=== PATIENT | female | born 1960 | race African-American/Black ===

== ENCOUNTER 2016-10-08 09:44 | Emergency (ER) | payer BC ==
[~2016-10-08] VITALS: Ht 182.9 cm; Wt 54.4 kg
[2016-10-08 09:50] VITALS: BP 123/80
[2016-10-08] MEDS ORDERED: HYDROcodone/APAP 5/325MG 1 TAB TABLET PO ONE (10:30)
[2016-10-08] MEDS ORDERED: CYCLOBENZAPRINE 10 MG TABLET. PO ONE (10:30)
--- NOTE | 2016-10-08 11:50 | RAD ---
Right rib series to include a PA chest radiograph 10/08/2016 Clinical history: Right rib pain post fall. A PA digital radiograph of the chest was obtained. AP and oblique digital radiographs of the right ribs were obtained. The cardiac silhouette is normal in size. The thoracic aorta is minimally tortuous. Atherosclerotic calcification of the thoracic aorta is seen. No acute pulmonary infiltrate is noted. No pneumothorax or pleural effusion is seen. The osseous structures are grossly intact. Specifically no right-sided rib fracture is seen. Impression: No right rib fracture is seen.
[2016-10-08] MEDS ORDERED: CYCL10TA2 PO (12:07)
[2016-10-08] MEDS ORDERED: HYDR-971 PO (12:07)
[2016-10-08] MEDS ORDERED: DICL50TA4 PO (12:07)
--- NOTE | 2016-10-08 12:07 | PHYS DOC ---
Past Medical History Past Medical History: Hypertension Past Surgical History: Other Additional Past Surgical Histo: partial hysterectomy in 1990 Alcohol Use: Occasionally Drug Use: None Adult General Chief Complaint Chief Complaint: MECHANICAL FALL HPI HPI Patient is a 56 year old female with history of hypertension who presents with a right rib contusion after slipping in the bathtub last night and falling. Patient denies any loss of consciousness, denies hitting her head on the ground. Review of Systems Review of Systems Constitutional: Denies fever or chills [] Eyes: Denies change in visual acuity, redness, or eye pain [] HENT: Denies nasal congestion or sore throat [] Respiratory: Right rib pain Cardiovascular: No additional information not addressed in HPI [] GI: Denies abdominal pain, nausea, vomiting, bloody stools or diarrhea [] : Denies dysuria or hematuria [] Musculoskeletal: Denies back pain or joint pain [] Integument: Denies rash or skin lesions [] Neurologic: Denies headache, focal weakness or sensory changes [] Endocrine: Denies polyuria or polydipsia [] Current Medications Current Medications Current Medications Medications (Trade) Dose Ordered Sig/Fabiola Start Time Stop Time Status Last Admin Dose Admin Acetaminophen/ Hydrocodone Bitart (Lortab 5/325) 1 tab 1X ONCE 10/08/16 10:30 10/08/16 10:31 DC 10/08/16 10:31 1 TAB Cyclobenzaprine HCl (Flexeril) 10 mg 1X ONCE 10/08/16 10:30 10/08/16 10:31 DC 10/08/16 10:31 10 MG Allergies Allergies Allergies Coded Allergies Type Severity Reaction Last Updated Verified ciprofloxacin Allergy Intermediate 10/08/16 Yes Physical Exam Physical Exam Constitutional: Well developed, well nourished, no acute distress, non-toxic appearance. [] HENT: Normocephalic, atraumatic, bilateral external ears normal, oropharynx moist, no oral exudates, nose normal. [] Eyes: PERRLA, EOMI, conjunctiva normal, no discharge. [] Neck: Normal range of motion, no tenderness, supple, no stridor. [] Cardiovascular:Heart rate regular rhythm, no murmur [] Lungs & Thorax: Bruising noted on the right posterior ribs approximately ribs 9 and 10. Tenderness on palpation to ribs 9 and 10 posteriorly. Bilateral breath sounds clear to auscultation [] Abdomen: Bowel sounds normal, soft, no tenderness, no masses, no pulsatile masses. [] Skin: Warm, dry, no erythema, no rash. [] Back: No tenderness, no CVA tenderness. [] Extremities: No tenderness, no cyanosis, no clubbing, ROM intact, no edema. [] Neurologic: Alert and oriented X 3, normal motor function, normal sensory function, no focal deficits noted. [] Psychologic: Affect normal, judgement normal, mood normal. [] Current Patient Data Vital Signs Vital Signs Date Time Temp Pulse Resp B/P (MAP) Pulse Ox O2 Delivery O2 Flow Rate FiO2 10/08/16 10:31 22 95 Room Air 10/08/16 09:50 98.7 87 98.7 EKG EKG [] Radiology/Procedures Radiology/Procedures [] Course & Med Decision Making Course & Med Decision Making Pertinent Labs and Imaging studies reviewed. (See chart for details) Patient is in the ED with right posterior rib pain after falling yesterday. Right rib x-rays with PA chest interpreted by radiologist were negative for any acute findings. Patient has right rib contusions. discharged with cyclobenzaprine, diclofenac, and [place]. Follow-up with PCP in 1-2 weeks. Ice recommended to the area. Dragon Disclaimer Dragon Disclaimer This electronic medical record was generated, in whole or in part, using a voice recognition dictation system. Departure Departure Impression: Primary Impression: Fall from standing Additional Impression: Contusion of rib on right side Disposition: 01 HOME, SELF-CARE Condition: STABLE Referrals: NO PCP (PCP) Follow-up with your doctor in one week Patient Instructions: Contusion, [id number], Fall Prevention and Home Safety Additional Instructions: You were seen for right rib contusion after falling. Your x-rays of the right ribs were negative for any acute findings. Apply ice to the affected region. Take the prescribed medicines as needed. Follow-up with your doctor in one week. Come back to the ED at any point symptoms worsen. Scripts Diclofenac Sodium (DICLOFENAC SODIUM) 50 Mg Tablet. 1 TAB PO BID, #60 TAB 1 Refill Prov: FABIÁNAIRENE APRN 10/08/16 Cyclobenzaprine Hcl (CYCLOBENZAPRINE HCL) 10 Mg Tablet 1 TAB PO TID, #30 TAB Prov: IRENE JAIN APRN 10/08/16 Hydrocodone/Apap 5-325 (NORCO 5-325 TABLET) 1 Each Tablet 1-2 TAB PO Q4-6HRS, #12 TAB Prov: IRENE JAIN JENAE 10/08/16 Problem Qualifiers Primary Impression: Fall from standing Encounter type: initial encounter Qualified Codes: W19.XXXA - Unspecified fall, initial encounter Additional Impression: Contusion of rib on right side Encounter type: initial encounter Qualified Codes: S20.211A - Contusion of right front wall of thorax, initial encounter ROMULOIRENE CHUNG JENAE Oct 08, 2016 12:07
== END 2016-10-08 12:11 | disposition home or self-care (01) ==
LOC: ER 09:44
DX: S20.211A Contusion of right front wall of thorax, initial encounter (principal); I10 Essential (primary) hypertension; Z90.711 Acquired absence of uterus with remaining cervical stump; Z88.1 Allergy status to other antibiotic agents; W18.2XXA Fall in (into) shower or empty bathtub, initial encounter; Y93.89 Activity, other specified; Y92.89 Other specified places as the place of occurrence of the external cause; Y99.8 Other external cause status
CPT/HCPCS: 71101; 99284-25

== ENCOUNTER → 2016-12-21 | Day surgery (SDC) | payer BC ==
[~2016-12-21] MED LIST: AMLO10TA2 PO; CYCL10TA2 PO; DICL50TA4 PO; HYDR-971 PO; HYDR12.53 PO; HYDROmorphone 2 MG/ML VIAL IV PRN; IV RINGERS,LACTATED 1000ML 1,000 ML IV SCH; LIDOCAINE 1% PF 2 ML VIAL. ID PRN; LOVA20TA2 PO; MELO15TA6 PO; METH4TAB PO; METO25TA4 PO; MORPHINE SULFATE 2 MG/ML DISP.SYRIN. IV PRN; OLME20TA19 PO; ONDANSETRON PF 4 MG/2 ML VIAL. IV PRN; PHEN100T82 PO; PROCHLORPERAZINE 10 MG/2 ML VIAL. IV PRN; PROPOFOL 40 ML IV ONE; SULF1TAB24 PO; TIZA4TAB PO; TRAM50TA PO; VALS80TA3 PO; ZOLP5TAB PO; fentaNYL PF VIAL 100 MCG/2 ML VIAL IV PRN
--- NOTE | 2016-12-21 10:35 | PDOC1 ---
HISTORY & PHYSICAL H&P Jacy Crandall [id number] 1960 12/15/2016 02:30 PM 02/07 [facility] [employer] [facility], [facility] OUR PATIENTS COME FIRST [address] [place] [address] Ph. [phone] Patient: Jacy Crandall Date of : 1960 Date: 12/15/2016 2:30 PM Visit Type: Consult This 56 year old female presents for Screening colonoscopy. History of Present Illness: 1. Screening colonoscopy No prior screening. Denies risk factors. Pertinent negatives include abdominal pain, change in bowel habits, change in stool caliber, constipation, decreased appetite, diarrhea, melena, nausea, rectal bleeding, vomiting, weight gain and weight loss. Additional information: No family history of colon cancer , No family history of Crohn's/colitis and No NSAID/ASA use. INTAKE COMMENTS: Intake Comments: Nurse Note: the pt is here today to schedule a screening colonoscopy. PROBLEM LIST: No active problems PAST MEDICAL/SURGICAL HISTORY (Detailed) Disease/disorder Onset Date Management Date Comments gallbladder 2012 partial hysterctomy 1990 Medications (Active): Started Medication Directions Instruction Stopped 12/01/2016 Ambien 5 mg tablet take 1 tablet by oral route every day at bedtime 11/17/2016 amlodipine 10 mg tablet take 1 tablet by oral route every day 11/17/2016 Benicar 20 mg tablet take 1 tablet by oral route every day 11/17/2016 lovastatin 20 mg tablet take 1 tablet by oral route every day with the evening meal 12/15/2016 Medrol (Christian) 4 mg tablets in a dose pack use as directed 11/17/2016 metoprolol tartrate 25 mg tablet take 1 tablet by oral route 2 times every day 12/15/2016 Mobic 15 mg tablet take 1 tablet by oral route every day 12/15/2016 tizanidine 4 mg tablet take 1 tablet by oral route every 8 hours as needed not to exceed 3 doses in 24 hours Allergies: Ingredient Reaction Medication Name Comment CIPROFLOXACIN hies,breathing Cipro CIPROFLOXACIN HCL hies,breathing Cipro REVIEW OF SYSTEMS System Neg/Pos Details Constitutional Negative Chills, fever, malaise, weight gain and weight loss. ENMT Negative Sore throat. Eyes Negative Double vision. Respiratory Negative Dyspnea and wheezing. Cardio Negative Chest pain and irregular heartbeat/palpitations. GI Positive See HPI. GI Negative Abdominal pain, change in bowel habits, change in stool caliber, constipation, decreased appetite, diarrhea, melena, nausea, see HPI, rectal bleeding and vomiting. Negative Dysuria and hematuria. Endocrine Negative Cold intolerance and heat intolerance. Psych Negative Anxiety. Integumentary Negative Hives and rash. MS Negative Joint pain. Alexander/Lymph Negative Easy bleeding and easy bruising. Allergic/Immuno Negative Food allergies. VITAL SIGNS Time BP mm/Hg Pulse /min Resp /min Temp F Ht ft Ht in Ht cm Wt lb Wt kg BMI kg/ m2 BSA m2 O2 Sat% 2:47 PM 140/80 92 98.0 6.0 0.00 182.88 143.00 64.864 19.39 95 Time Measured by 2:47 PM Sidra Worthington PHYSICAL EXAM: Exam Findings Details Constitutional Normal Well developed. Eyes Normal Conjunctiva - Right: Normal, Left: Normal. Sclera - Right: Normal, Left: Normal. Nasopharynx Normal Lips/teeth/gums - Normal. Neck Exam Normal Inspection - Normal. Thyroid gland - Normal. Respiratory Normal Inspection - Normal. Auscultation - Normal. Cardiovascular Normal Regular rate and rhythm. No murmurs, gallops, or rubs. Vascular Normal Pulses - Carotids: Normal, Femoral: Normal, Dorsalis pedis: Normal. Abdomen Normal Inspection - Normal. Anterior palpation - No guarding. No abdominal tenderness. No hepatic enlargement. No splenic enlargement. No hernia. No Ascites. Skin Normal Inspection - Normal. Extremity Normal No edema. Psychiatric Normal Oriented to time, place, person, and situation. Appropriate mood and effect. Assessment/Plan # Detail Type Description 1. Assessment Encounter for screening colonoscopy (Z12.11). Patient Plan schedule colonoscopy at Plan Orders Further diagnostic evaluations ordered today include(s) Colonoscopy to be performed today. She is to schedule a follow-up visit with Connie Roger MD upon completion of work-up Electronically signed by: Connie Roger MD 12/15/2016 03:11 PM Document generated by: Connie Roger 12/15/2016 03:11 PM Clement Boykin MD, Family Practice; Aubrey Dyer MD Internal Medicine; Kareen Alonso MD, Internal Medicine; Kaela Roger MD Internal Medicine; Connie Roger MD, Gastroenterology; Hua Jade MD, Rheumatology, S. Howard Haque, Physical Medicine/Rehab JZuri Roche APRN ------ 12/21/16 Patient seen and examined. No change in H&P. CONNIE ROGER MD Dec 21, 2016 10:35
[2016-12-21 12:00] VITALS: BP 123/70
== END | disposition home or self-care (01) ==
LOC: ENDOS 10:17
PROVIDERS: ATTEND Internal Medicine Gastroenterology
DX: Z12.11 Encounter for screening for malignant neoplasm of colon (principal); K57.30 Diverticulosis of large intestine without perforation or abscess without bleeding; E78.00 Pure hypercholesterolemia, unspecified; K21.9 Gastro-esophageal reflux disease without esophagitis; M17.11 Unilateral primary osteoarthritis, right knee; F17.200 Nicotine dependence, unspecified, uncomplicated; Z90.49 Acquired absence of other specified parts of digestive tract; Z87.440 Personal history of urinary (tract) infections; Z87.39 Personal history of other diseases of the musculoskeletal system and connective tissue; Z90.710 Acquired absence of both cervix and uterus; Z72.89 Other problems related to lifestyle; Z88.1 Allergy status to other antibiotic agents
CPT/HCPCS: 45378; J2704

== ENCOUNTER → 2017-03-03 | Outpatient (CLI) | payer BC | END | disposition home or self-care (01) | LOC: RAD 14:52 | DX: M51.37 Other intervertebral disc degeneration, lumbosacral region (principal); M25.561 Pain in right knee; M25.562 Pain in left knee | CPT/HCPCS: 72020; 73565 ==

== ENCOUNTER 2017-11-17 15:09 | Emergency (ER) | payer BC ==
[~2017-11-17] VITALS: Ht 182.9 cm; Wt 66.2 kg
[~2017-11-17 15:09] MED LIST changes: -AMLO10TA2 PO; +AMLO10TA6 PO; -HYDROmorphone 2 MG/ML VIAL IV PRN; -IV RINGERS,LACTATED 1000ML 1,000 ML IV SCH; -LIDOCAINE 1% PF 2 ML VIAL. ID PRN; -MORPHINE SULFATE 2 MG/ML DISP.SYRIN. IV PRN; +OLME20TA17 PO; -OLME20TA19 PO; -ONDANSETRON PF 4 MG/2 ML VIAL. IV PRN; -PROCHLORPERAZINE 10 MG/2 ML VIAL. IV PRN; -PROPOFOL 40 ML IV ONE; -fentaNYL PF VIAL 100 MCG/2 ML VIAL IV PRN
[2017-11-17] MEDS ORDERED: IV NORMAL SALINE 1000ML BAG 1,000 ML IV SCH (15:37)
[2017-11-17] MEDS ORDERED: ORPHENADRINE CITRATE 60 MG/2 ML VIAL. IV ONE (15:45)
[2017-11-17 15:55] LABS: BILIRUBIN,URINE SMALL (NEG); CLARITY,URINE CLEAR; COLOR,URINE YELLOW; NITRITE,URINE POSITIVE (NEG); PH,URINE 5.5; PROTEIN,URINE 30 mg/dL (NEG-TRACE)
[2017-11-17 16:11] LABS: BACTERIA,URINE MANY /HPF (0-FEW); RBC,URINE OCC /HPF (0-2); SQUAMOUS EPITHELIAL CELL,UR FEW /LPF
[2017-11-17 16:12] LABS: BASO # 0.1 x10^3/uL (0.0-0.2); BASO % 1 % (0-3); EOS # 0.1 x10^3/uL (0.0-0.7); EOS % 2 % (0-3); HEMATOCRIT 35.2 % (36.0-47.0); LYMPH # 2.1 x10^3/uL (1.0-4.8); LYMPH % 30 % (24-48); MEAN CORPUSCULAR HEMOGLOBIN 33 pg (25-35); MEAN CORPUSCULAR HGB CONC 34 g/dL (31-37); MEAN CORPUSCULAR VOLUME 96 fL (79-100); MONO # 0.4 x10^3/uL (0.0-1.1); MONO % 5 % (0-9); NEUT # 4.3 x10^3uL (1.8-7.7); NEUT % 62 % (31-73); PLATELET COUNT 323 x10^3/uL (140-400); RED BLOOD COUNT 3.66 x10^6/uL (3.50-5.40); RED CELL DISTRIBUTION WIDTH 14.8 % (11.5-14.5); WHITE BLOOD COUNT 6.9 x10^3/uL (4.0-11.0)
[2017-11-17 16:12] LABS: HYALINE CASTS, URINE MODERATE /HPF; TRICHOMONAS,URINE PRESENT
[2017-11-17] MEDS ORDERED: HYDROcodone/APAP 7.5/325MG 1 TAB TABLET PO ONE (16:30)
[2017-11-17 16:46] LABS: CALCIUM 9.3 mg/dL (8.5-10.1); CREATININE 1.3 mg/dL (0.6-1.0); GFR 51.3; POTASSIUM 3.8 mmol/L (3.5-5.1)
[2017-11-17 16:52] LABS: ALBUMIN 4.2 g/dL (3.4-5.0); ALBUMIN/GLOBULIN RATIO 1.1 (1.0-1.7); TOTAL BILIRUBIN 0.3 mg/dL (0.2-1.0); TOTAL PROTEIN 8.1 g/dL (6.4-8.2)
[2017-11-17 17:24] VITALS: BP 148/84
[2017-11-17] MEDS ORDERED: SULF1TAB24 PO (17:43)
[2017-11-17] MEDS ORDERED: NAPR-683 PO (17:43)
[2017-11-17] MEDS ORDERED: TRAM50TA PO (17:43)
[2017-11-17] MEDS ORDERED: CYCL5TAB PO (17:43)
--- NOTE | 2017-11-17 17:43 | PHYS DOC ---
Past Medical History Past Medical History: Hypertension Past Surgical History: Other Additional Past Surgical Histo: partial hysterectomy in 1990 Alcohol Use: Occasionally Drug Use: None Adult General Chief Complaint Chief Complaint: BACK PAIN - NO INJURY HPI HPI Patient is a 57-year-old female who presents with complaint of right lower back pain that has been going on for the last few months. Patient states that she is not aware of any injuries that caused the pain. She describes pain as being sharp and stabbing in nature and states the pain is worsened with movement. She denies any radiation of the pain into her legs and denies any loss of bowel or bladder control. She rates the pain to be an 8 out of 10. She states that nothing is improving the pain. She denies any chest pain, shortness breath or fever. She also denies any urinary discomfort but states that her urine has been dark. Review of Systems Review of Systems Constitutional: Denies fever or chills [] Respiratory: Denies cough or shortness of breath [] Cardiovascular: Denies chest pain[] GI: Denies abdominal pain, nausea, vomiting or diarrhea [] : Denies dysuria or hematuria [] Musculoskeletal: Complains of right lower back pain[] Integument: Denies rash or skin lesions [] Neurologic: Denies headache, focal weakness or sensory changes [] All other systems were reviewed and found to be within normal limits, except as documented in this note. Current Medications Current Medications Current Medications Medications (Trade) Dose Ordered Sig/Fabiola Start Time Stop Time Status Last Admin Dose Admin Acetaminophen/ Hydrocodone Bitart (Lortab 7.5/325) 1 tab 1X ONCE 11/17/17 16:30 11/17/17 16:31 DC 11/17/17 16:30 1 TAB Ceftriaxone Sodium 50 ml @ 100 mls/hr 1X ONCE 11/17/17 17:15 11/17/17 17:44 11/17/17 17:21 100 MLS/HR Orphenadrine Citrate (Norflex) 60 mg 1X ONCE 11/17/17 15:45 11/17/17 15:46 DC 11/17/17 16:14 60 MG Sodium Chloride 1,000 ml @ 1,000 mls/hr Q1H 11/17/17 15:37 11/17/17 16:36 DC 11/17/17 16:14 1,000 MLS/HR Allergies Allergies Allergies Coded Allergies Type Severity Reaction Last Updated Verified ciprofloxacin Allergy Intermediate 12/21/16 Yes ciprofloxacin HCl Allergy Intermediate itching 12/21/16 Yes Physical Exam Physical Exam Constitutional: Well developed, well nourished, no acute distress, non-toxic appearance. [] HENT: Normocephalic, atraumatic, bilateral external ears normal, oropharynx moist, no oral exudates, nose normal. [] Eyes: PERRLA, EOMI, conjunctiva normal, no discharge. [] Neck: Normal range of motion, no tenderness, supple, no stridor. [] Cardiovascular:Heart rate regular rhythm, no murmur [] Lungs & Thorax: Bilateral breath sounds clear to auscultation [] Abdomen: Bowel sounds normal, soft, no tenderness, no masses, no pulsatile masses. [] Skin: Warm, dry, no erythema, no rash. [] Back: Patient reports to tenderness to palpation around the right SI joint. There is mild palpable spasm in the right lower lumbar paraspinal musculature. [ ] Extremities: No tenderness, no cyanosis, no clubbing, ROM intact, no edema. [] Neurologic: Alert and oriented X 3, normal motor function, normal sensory function, no focal deficits noted. [] Current Patient Data Vital Signs Vital Signs Date Time Temp Pulse Resp B/P (MAP) Pulse Ox O2 Delivery O2 Flow Rate FiO2 11/17/17 17:24 74 18 148/84 (105) 99 Room Air 11/17/17 15:20 99.1 99.1 Lab Values Laboratory Tests Test 11/17/17 15:35 11/17/17 15:55 11/17/17 16:30 Urine Collection Type Void Urine Color Yellow Urine Clarity Clear Urine pH 5.5 Urine Specific [place] >=1.030 Urine Protein 30 mg/dL (NEG-TRACE) Urine Glucose (UA) Negative mg/dL (NEG) Urine Ketones (Stick) Trace mg/dL (NEG) Urine Blood Negative (NEG) Urine Nitrite Positive (NEG) Urine Bilirubin Small (NEG) Urine Urobilinogen Dipstick 1.0 mg/dL (0.2 mg/dL) Urine Leukocyte Esterase Moderate (NEG) Urine RBC Occ /HPF (0-2) Urine WBC 5-10 /HPF (0-4) Urine Squamous Epithelial Cells Few /LPF Urine Bacteria Many /HPF (0-FEW) Urine Hyaline Casts Moderate /HPF Urine Mucus Marked /LPF Urine Trichomonas Present White Blood Count 6.9 x10^3/uL (4.0-11.0) Red Blood Count 3.66 x10^6/uL (3.50-5.40) Hemoglobin 12.0 g/dL (12.0-15.5) Hematocrit 35.2 % (36.0-47.0) L Mean Corpuscular Volume 96 fL (79-100) Mean Corpuscular Hemoglobin 33 pg (25-35) Mean Corpuscular Hemoglobin Concent 34 g/dL (31-37) Red Cell Distribution Width 14.8 % (11.5-14.5) H Platelet Count 323 x10^3/uL (140-400) Neutrophils (%) (Auto) 62 % (31-73) Lymphocytes (%) (Auto) 30 % (24-48) Monocytes (%) (Auto) 5 % (0-9) Eosinophils (%) (Auto) 2 % (0-3) Basophils (%) (Auto) 1 % (0-3) Neutrophils # (Auto) 4.3 x10^3uL (1.8-7.7) Lymphocytes # (Auto) 2.1 x10^3/uL (1.0-4.8) Monocytes # (Auto) 0.4 x10^3/uL (0.0-1.1) Eosinophils # (Auto) 0.1 x10^3/uL (0.0-0.7) Basophils # (Auto) 0.1 x10^3/uL (0.0-0.2) Sodium Level 146 mmol/L (136-145) H Potassium Level 3.8 mmol/L (3.5-5.1) Chloride Level 107 mmol/L (98-107) Carbon Dioxide Level 27 mmol/L (21-32) Anion Gap 12 (6-14) Blood Urea Nitrogen 22 mg/dL (7-20) H Creatinine 1.3 mg/dL (0.6-1.0) H Estimated GFR (Cockcroft-Gault) 51.3 BUN/Creatinine Ratio 17 (6-20) Glucose Level 93 mg/dL (70-99) Calcium Level 9.3 mg/dL (8.5-10.1) Total Bilirubin 0.3 mg/dL (0.2-1.0) Aspartate Amino Transferase (AST) 25 U/L (15-37) Alanine Aminotransferase (ALT) 37 U/L (14-59) Alkaline Phosphatase 75 U/L (46-116) Total Protein 8.1 g/dL (6.4-8.2) Albumin 4.2 g/dL (3.4-5.0) Albumin/Globulin Ratio 1.1 (1.0-1.7) Laboratory Tests 11/17/17 15:55 Laboratory Tests 11/17/17 16:30 EKG EKG [] Radiology/Procedures Radiology/Procedures [] Course & Med Decision Making Course & Med Decision Making Pertinent Labs and Imaging studies reviewed. (See chart for details) [] Dragon Disclaimer Dragon Disclaimer This electronic medical record was generated, in whole or in part, using a voice recognition dictation system. Departure Departure Impression: Primary Impression: Low back pain Additional Impression: Urinary tract infection Disposition: HOME, SELF-CARE Condition: STABLE Referrals: EMIR OROZCO MD (PCP) Patient Instructions: Back Pain, Adult, Urinary Tract Infection Additional Instructions: Take prescribed medication as directed and follow-up with your primary care provider in the next few days. Scripts Sulfamethoxazole/Trimethoprim (BACTRIM DS TABLET) 1 Each Tablet 1 TAB PO BID, #20 TAB Prov: MARGY DEL ROSARIO Jr. DO 11/17/17 Cyclobenzaprine Hcl (CYCLOBENZAPRINE HCL) 5 Mg Tablet 5 MG PO PRN TID PRN for MUSCLE SPASMS, #15 TAB Prov: MARGY DEL ROSARIO Jr. DO 11/17/17 Naproxen (NAPROSYN) 500 Mg Tablet 1 TAB PO BID PRN for PAIN, #20 TAB Prov: MARGY DEL ROSARIO Jr. DO 11/17/17 Tramadol Hcl (TRAMADOL HCL) 50 Mg Tablet 50 MG PO Q6HRS PRN for PAIN, #12 TAB Prov: MARGY DEL ROSARIO Jr. DO 11/17/17 Problem Qualifiers Primary Impression: Low back pain Chronicity: unspecified Back pain laterality: right Sciatica presence: without sciatica Qualified Codes: M54.5 - Low back pain Additional Impression: Urinary tract infection Urinary tract infection type: site unspecified Hematuria presence: without hematuria Qualified Codes: N39.0 - Urinary tract infection, site not specified MARGY DEL ROSARIO Jr. DO Nov 17, 2017 17:43
--- NOTE | 2017-11-17 21:40 | VNOTE ---
CALL BACK NOTE CALL BACK Patient was positive for Trichomonas, spoke to patient about results prescription for Flagyl called into [facility] on [address] and IRENE Kim APRN Nov 17, 2017 21:40
== END 2017-11-17 18:02 | disposition home or self-care (01) ==
LOC: ER 15:09
DX: N39.0 Urinary tract infection, site not specified (principal); M54.5 Low back pain; I10 Essential (primary) hypertension; Z90.710 Acquired absence of both cervix and uterus; Z88.1 Allergy status to other antibiotic agents
CPT/HCPCS: 36415; 80053; 81001; 85025; 87086; 96365; 96375; 99284; J0690; J2360; J7030

== ENCOUNTER → 2017-12-28 | Outpatient (CLI) | payer BC ==
[~2017-12-28] MED LIST changes: +CYCL5TAB PO; +HYDR-3164 PO; -HYDR-971 PO; +NAPR-683 PO
--- NOTE | 2018-01-02 13:06 | RAD ---
DATE: 12/28/2017 EXAM: DIGITAL SCREEN BILAT W/CAD HISTORY: Routine screening COMPARISON: 12/14/2016 This study was interpreted with the benefit of Computerized Aided Detection (CAD). Breast Density: HETERO The breast parenchyma is heterogenously dense, which could reduce sensitivity of mammography. Breast parenchyma level C. FINDINGS: No new or enlarging breast densities are seen. Minimal benign type calcifications are present. No suspicious microcalcifications have developed. IMPRESSION: Stable mammograms without evidence of malignancy. BI-RADS CATEGORY: 2 BENIGN FINDING(S) RECOMMENDED FOLLOW-UP: 12M 12 MONTH FOLLOW-UP PQRS compliance statement: Patient information was entered into a reminder system with a target due date for the next mammogram. Mammography is a sensitive method for finding small breast cancers, but it does not detect them all and is not a substitute for careful clinical examination. A negative mammogram does not negate a clinically suspicious finding and should not result in delay in biopsying a clinically suspicious abnormality. "Our facility is accredited by the [employer] Mammography [employer]."
== END | disposition home or self-care (01) ==
LOC: MAMMO 09:50
PROVIDERS: ATTEND Internal Medicine
DX: Z12.31 Encounter for screening mammogram for malignant neoplasm of breast (principal)
CPT/HCPCS: 77067

== ENCOUNTER → 2018-01-11 | Outpatient (CLI) | payer BC ==
[~2018-01-11] MED LIST changes: -HYDR12.53 PO; +HYDR12.575 PO; +IOHEXOL 300 MG/ML 100ML VIAL. IV ONE
--- NOTE | 2018-01-11 17:14 | RAD ---
CT of the abdomen with and without contrast, 01/11/2018: History: Follow-up adrenal adenoma Multidetector CT imaging was performed prior to and following an IV bolus injection of iodinated contrast material. No oral contrast material was administered for this exam. Comparison is made to a study from 11/26/2016. There is a right adrenal nodule which measures approximately 16 x 19 mm in the coronal plane. It is unchanged since previous study. It demonstrates an internal CT number of approximately 23 Hounsfield units. This is too high to be diagnostic of a lipid rich adenoma, however, that remains a likely possibility. The left adrenal gland is unremarkable. A calcified granuloma is present in the right base. No hepatic abnormality is detected. The gallbladder is surgically absent. The pancreas cannot be clearly from unopacified bowel. Decreased density in the region of the pancreatic tail is most likely bowel. There is mild bilateral renal cortical scarring. The kidneys are otherwise unremarkable. Moderate aortoiliac calcific plaquing is present. There is no evidence of aneurysm. No retroperitoneal or mesenteric adenopathy is seen. The visualized bowel loops are unremarkable. No free fluid is evident in the abdomen. IMPRESSION: 1. Stable right adrenal nodule, most likely a benign adenoma. 2. No acute abdominal abnormality is detected. PQRS Compliance Statement: One or more of the following individualized dose reduction techniques were utilized for this examination: 1. Automated exposure control 2. Adjustment of the mA and/or kV according to patient size 3. Use of iterative reconstruction technique
== END | disposition home or self-care (01) ==
LOC: CT 09:26
PROVIDERS: ATTEND Internal Medicine
DX: D35.01 Benign neoplasm of right adrenal gland (principal)
CPT/HCPCS: 74160; Q9967

== ENCOUNTER → 2018-12-28 | Outpatient (CLI) | payer BC ==
[~2018-12-28] MED LIST changes: -AMLO10TA6 PO; +AMLO10TA8 PO; -IOHEXOL 300 MG/ML 100ML VIAL. IV ONE; -TIZA4TAB PO; +TIZA4TAB2 PO
--- NOTE | 2018-12-28 17:30 | KCIC ---
Bilateral digital screening mammograms: Reason for examination: Routine screening. Comparison is made to previous studies dated 12/28/2017 and 12/14/2016. Interpretation was made with the benefit of CAD. The skin and nipples show no abnormalities. No abnormal axillary lymph nodes are seen. The breast parenchyma is heterogeneously dense. (Breast density: Category C.) There are no dominant masses, suspicious calcifications or architectural distortion. Impression: No evidence of malignancy. Recommend routine screening. Your patient's mammogram demonstrates that she has dense breast tissue (breast density category C or D), which could hide abnormalities, and if she has other risk factors for breast cancer that have been identified, she might benefit from supplemental screening tests that may be suggested by you as her ordering physician. Dense breast tissue, in and of itself, is a relatively common condition. Therefore, this information is not provided to cause undue concern, but rather to raise your awareness and to promote discussion with your patient regarding the presence of other risk factors, in addition to dense breast tissue. Your patient's mammography results will be sent to her. BI-RAD Category 1: Negative. "Our facility is accredited by the [employer] Mammography Program." This patient's information has been entered into a reminder system for the patient to be notified with the results of her examination and a target date for the next mammogram. Electronically signed by: Ilda Jerez MD (12/28/2018 5:27 PM) [id number]
== END | disposition home or self-care (01) ==
LOC: KCIC MAMMO 14:33
PROVIDERS: ATTEND Internal Medicine
DX: Z12.31 Encounter for screening mammogram for malignant neoplasm of breast (principal)
CPT/HCPCS: 77067

== ENCOUNTER → 2019-07-19 | Outpatient (CLI) | payer BC ==
--- NOTE | 2019-07-19 16:47 | RAD ---
MRI Lumbar Spine without contrast History: Subacute lumbar pain and radiculopathy Technique: Multiplanar, multi sequential noncontrast MR imaging was performed of the lumbar spine. Comparison: None Findings: There appears to be transitional anatomy of the lumbar spine. For this report, there is assumption of 5 lumbar type vertebral bodies. There is a rudimentary intervertebral disc space at what is considered S1-S2, most inferior fully formed abnormal-appearing intervertebral disc space considered L5-S1. There is ahfd-kt-egppynbf degenerative disc disease at L4-5 and minimally L3-4. Conus terminates at L2. There is no significant focal marrow edema. L1-L2: This level was not included on the axial images. Spinal canal and neural foramina are adequate. L2-L3: Spinal canal and neural foramina are adequate. L3-L4: There is minimal disc osteophyte complex. There are anterior and posterior annular tears. There is prominence of posterior epidural fat centrally. There is mild buckling of the ligamentum flavum flavum and mild to moderate facet degenerative change. Spinal canal is overall adequate. There is disc osteophyte complex and protrusion in the inferior left neural foramen contributing to bvnv-rc-ulkgngzi narrowing of the left neural foramen greater distally with contact undersurface exiting left L3 nerve root in the distal neural foramen and proximal extraforaminal region without significant displacement. Right neural foramen is overall adequate. L4-L5: There is minimal disc osteophyte complex and bulge. There is mild buckling of the ligamentum flavum and gbqf-xe-jrhvgbwn facet degenerative change. There is very minimal narrowing of the far right lateral recess. Right neural foramen is overall adequate, mild narrowing of the left neural foramen greater distally mostly from disc osteophyte complex. L5-S1: Spinal canal is adequate. There is minimal disc osteophyte complex and very shallow protrusion in the inferior right neural foramen. There is mild narrowing of the right neural foramen, left neural foramen also very minimally narrowed from posteriorly by facet. There is mild buckling of the ligamentum flavum greater on the right. There is facet degenerative change greater on the right. Impression: 1. There is transitional anatomy of the lumbar spine, most inferior fully formed and normal-appearing intervertebral disc space considered L5-S1. There is isbw-xc-bfusfhoi degenerative disc disease at what is considered L4-5 and to lesser degree at L3-4. There is no significant lumbar spinal stenosis. There is mild narrowing of what is considered the left L3-4 neural foramen with contact of the exiting left L3 nerve root in the distal neural foramen and proximal extraforaminal region, other minimal narrowing as stated. Electronically signed by: Isma Mohr MD (07/19/2019 4:44 PM) [id number]
== END ==
LOC: MRI 14:47
PROVIDERS: ATTEND Physical Medicine & Rehabilitation
DX: M51.17 Intervertebral disc disorders with radiculopathy, lumbosacral region (principal); M25.78 Osteophyte, vertebrae; M48.07 Spinal stenosis, lumbosacral region
CPT/HCPCS: 72148

== ENCOUNTER → 2019-10-03 | Outpatient (CLI) | payer BC ==
--- NOTE | 2019-10-03 12:28 | RAD ---
MR#: [id number] Date of Study: 10/03/2019 Ordering Physician: LOY OBRIEN, Referring Physician: LYNDA JARA Tech: RODGER Harkins APPROVED REPORT Test Type: Exercise Stress Nurse/Tech: Nicky Gongora R.N. Test Indications: irregular heart beat Cardiac History: htn, smoker Medications: amlodipine, lovastatin, benicar, metoprolol Medical History: see ehr Resting ECG: sinus arrhythmia Resting Heart Rate: 65 bpm Resting Blood Pressure: 143/83mmHg Pretest Chest Pain: No chest pain Nurse/Tech Notes lungs cta, heart tones regular Consent: The procedure was explained to the patient in lay terms. Informed consent was witnessed. Kvng eout was entered into MMIS. History and Stress Test performed by CORRINE Clarke, ARRT (R) (N) Stress Symptoms No chest pain or symptoms. POST EXERCISE Reason for Termination: Reached target heart rate Target HR: Yes Max HR: 153 bpm 94% of Maximum Predicted HR: 162 bpm Exercise duration: 5:58 min:sec, 2 Stage Exercise capacity: 7.0METs Max Blood Pressure: 175/93mmHg Blood Pressure response to exercise: Normal blood pressure response during stress. Heart Rate response to exercise: normal Chest Pain: No. Arrhythmia: No. ST Change: Yes. non diagnostic INTERPRETATION Stress EKG Conclusion: Baseline EKG showed sinus rhythm. Nondiagnostic changes at peak stress. No a rrhythmias. Imaging Protocol IMAGE PROTOCOL: Rest Tc-99m/stress Tc-99m 1 day Rest: Stress: Viability: Radiopharm.Tc99m WxnijlqjnOu20j Sestamibi Edur07iOo 30.6mCi Duration 15min. 13min. Img Date 10/03/2019 10/03/2019 Inj-Img [id number]. 60min. Post-Injection Exercise: 1 minute Rest Admin Site:IV - Right AntecubitalAdministrator:RODGER Harkins Stress Admin Site: IV - Right AntecubitalAdministrator: CORRINE Clarke, ARRT (R)(N) STRESS DATA End Diast. Vol.71.0mlLVEDV index BSA37.0ml End Syst. Vol.21.0mlLVESV index BSA11.0ml Myocardial Onak841.0gEject. Ecsdaerc13.0% Stress Scores Regional WT2.00Summed WT3.00 Regional WM0.00Summed WM1.00 Study quality was good. Left Ventricular size was Normal at Rest and Stress. Lung uptake was . Left Ventricular ejection fraction is 70%. The rest and stress images show normal perfusion, normal contraction and thickening. LV Perf. Quant 17 Seg. SSS0.00 17 Seg. SRS0.00 17 Seg. SDS0.00 Stress Defect Extent (% LAD)0.00Rest Defect Extent (% LAD)0.00Rev. Defect Extent (% LAD)0.00 Stress Defect Extent (% LCX) 0.00Rest Defect Extent (% LCX)0.00Rev. Defect Extent (% LCX)0.00 Stress Defect Extent (% RCA)0.00Rest Defect Extent (% RCA)0.00Rev. Defect Extent (% RCA)0.00 Stress Defect Extent (% JIL)0.00Rest Defect Extent (% JIL)0.00Rev. Defect Extent (% JIL)0.00 Conclusion 1. Treadmill exercise cardioisotope stress test did not show any evidence of ischemia or infarct. 2. Normal left ventricular systolic function with ejection fraction calculated at 70%. 3. Low risk for cardiac events. Signed by : Moses Flowers, Electronically Approved : 10/03/2019 12:28:15
== END ==
LOC: NM 07:41
PROVIDERS: ATTEND Internal Medicine Cardiovascular Disease
DX: R07.89 Other chest pain (principal)
CPT/HCPCS: 78452; 93017; A9500

== ENCOUNTER → 2020-07-23 | Outpatient (CLI) | payer BC ==
[~2020-07-23] MED LIST changes: +AMLO-187 PO; -AMLO10TA8 PO
--- NOTE | 2020-07-23 15:43 | PDOC1 ---
INITIAL PAIN CONSULT DATE OF SERVICE: DOS: DATE: 07/23/20 TIME: 15:35 CHIEF COMPLAINT: Chief Complaint: Low back and left lower extremity pain HISTORY OF PRESENT ILLNESS: 60-year-old female presents history of pain in the low back and left side and leg for about 1 and half years not the result of any specific injury or accident that she is aware of is getting worse over time in the low back and radiating the left lower extremity posterior flank into the lateral and anterior thigh anteromedial thigh medial knee on the left side patient reports that stabbing aching shooting at times worse with walking standing changing position specially bending down or trying to diamond picker something from the floor and reach back up she has significant difficulty with flexion and extension movements with pain in the low back and left side patient reports it wakes her from sleep least twice a night does not affect her bowel bladder control but does affect her ability to walk and stand. Patient is taking tramadol which helps occasionally but not very great maybe 40% and tizanidine she is tried which was not helpful and just made her sleepy. Patient has had some chiropractic treatments in the past and has been doing stretching strength exercises that she learned from her primary care physician on her own with strength stretching and strengthening for the low back and left lower extremity but is not been decreasing the pain significantly. Patient rates her disability rating 0-10 10 being the worst is a 7 with an home responsibilities recreation 6 with social activity 9 with occupational activities 5 with sexual [place] for self-care and 1 with life support activities. Patient did have an MRI scan lumbar spine showing L3-4 level with osteophyte complex and protrusion of the neural foramen contributing to mild to moderate narrowing of the left neural foramen greater distally with contact of the undersurface exiting left L3 nerve root in the distal nerve foramen and proximal extraforaminal region. L4-5 shows mild to moderate degenerative change with very mild narrowing of the far right lateral recess and mild narrowing of the left neural foramen greater distally mostly from disc osteophyte complex L5-S1 shows very shallow protrusion and inferior right neural foramen with left foramen very minimally narrowed from posterior facet PAST MEDICAL HISTORY: PMH: Arthritis, hypertension, cigarette smoking PREVIOUS SURGERIES: Past Surgical Hx: Hysterectomy, cholecystectomy CURRENT MEDICATIONS: Current Meds: Active Scripts Medications Dose Route/Sig Max Daily Dose Days Date Category Benicar (Olmesartan Medoxomil) 20 Mg Tablet 20 Mg PO DAILY 12/21/16 Reported Lovastatin 20 Mg Tablet 20 Mg PO HS 12/21/16 Reported Metoprolol Tartrate 25 Mg Tablet 25 Mg PO BID 11/27/16 Reported Amlodipine Besylate 10 Mg Tablet 10 Mg PO DAILY 11/27/16 Reported ALLERGIES; Allergies: Coded Allergies: ciprofloxacin (Verified Allergy, Intermediate, 12/21/16) ciprofloxacin HCl (Verified Allergy, Intermediate, itching, 12/21/16) FAMILY HISTORY: Family Hx: Cancers SOCIAL HISTORY: Social Hx: Patient is alcohol only rarely, smokes cigarettes about half pack a day has for about 20 years does not use any illegal illicit recreational drugs is single, lives locally [place] [facility] [place] REVIEW OF SYSTEMS: ROS: Positive for those items mentioned in history of present illness, all systems are reviewed, otherwise negative ,and are complete full and well-documented on patient's chart. PHYSICAL EXAM: VS: Blood pressure is 152/90 pulse 85 respirations 18 temperature 90.1 F height 6 foot weight 146 pounds PE: PHYSICAL EXAMINATION: GENERAL: The patient is awake, alert, oriented, appropriate, very pleasant in demeanor HEENT: Shows normocephalic, atraumatic. Extraocular movements are intact and symmetrical. Oral cavity: Mucous membranes moist and pink. Dentition is intact. NECK: Shows anterior throat supple without palpable lymphadenopathy noted. Swallow reflex symmetrical. CHEST: Shows normal on inspection. Breath sounds are clear bilaterally, no rales rhonchi or wheezes auscultated. HEART: Shows S1, S2 clear. No murmurs auscultated. ABDOMEN: Soft, nontender, nondistended. No palpable organomegaly is noted. BACK: Shows spine grossly in the midline. Normal-appearing cervical lordotic curvature. There is slightly increased thoracic kyphosis, some flattening of the lumbar lordotic curvature. Lumbar paraspinous muscles show symmetrical on inspection, on palpation shows some moderate tenderness diffusely throughout the upper, middle and lower distribution of the paraspinous muscles more on the left than the right and more in the lower distribution on the left, and also into the lower thoracic paraspinous musculature, firm and tender, but without specific trigger points, without radiation of pain. No tenderness over the spinous processes, sacrum or sacroiliac regions. EXTREMITIES: Lower extremities show deep tendon reflexes 2+ in the patellar and tendo calcaneus tendons. Motor exam is 5 on a scale of 5 with right dorsiflexion, extension, quadriceps and hamstring flexion and 4/5 on the left. Peripheral pulses are 1 posterior tibial. No peripheral edema is noted bilaterally. Lower extremities are warm and dry to touch, equal in color and appearance. Straight leg raise noted to be positive on the left at approximate 45 degrees decreased with knee flexion, right side is negative.. Gaenslen's and Sven's maneuvers are negative as well. The patient is able to and, stand on toes without significant difficulty or loss of balance, walks with a slight favoring gait favoring the left lower extremity but not use any assistive devices canes or walkers to ambulate. SKIN: Shows warm and dry, good turgor. No edema. No sores, rashes or bruising throughout. IMPRESSION: Impression: 60-year-old female with 1/2-year history low back left lower extremity pain and left flank pain consistent with L3-4 radicular pain. MRI scan lumbar spine as noted Arthritis Hypertension Cigarette smoking Plan: Options were discussed with the patient including conservative medical management continued physical therapies and interventional techniques. As patient has tried multiple analgesics with prescription and pbak-cdf-ygaxvyk as well as stretching strengthening exercises and therapies, she would like to pursue interventional techniques. We discussed a lumbar epidural steroid injection using description as well as anatomical models to describe the procedure. Patient will wait for preauthorization with her insurance provider, once this is obtained we will plan on a translaminar approach at the L3-4 level lumbar epidural steroid injection. In the meantime patient was given a Medrol Dosepak with instructions side effects aware of, and also Valium 10 mg to take 1 hour prior to procedure for her next visit, with instructions and side effects discussed as well. LYNN HAMPTON MD Jul 23, 2020 15:43
== END | disposition home or self-care (01) ==
LOC: PNCL 14:02
PROVIDERS: ATTEND Anesthesiology
DX: M54.5 Low back pain (principal); M79.605 Pain in left leg; M19.90 Unspecified osteoarthritis, unspecified site; I10 Essential (primary) hypertension; E78.00 Pure hypercholesterolemia, unspecified; K21.9 Gastro-esophageal reflux disease without esophagitis; D64.9 Anemia, unspecified; F17.210 Nicotine dependence, cigarettes, uncomplicated; Z90.49 Acquired absence of other specified parts of digestive tract; Z90.710 Acquired absence of both cervix and uterus; Z98.890 Other specified postprocedural states; Z79.899 Other long term (current) drug therapy; Z87.440 Personal history of urinary (tract) infections; Z88.8 Allergy status to other drugs, medicaments and biological substances; Z88.1 Allergy status to other antibiotic agents; Z72.89 Other problems related to lifestyle
CPT/HCPCS: 99214; G0463

== ENCOUNTER → 2020-08-13 | Outpatient (CLI) | payer BC ==
[~2020-08-13] MED LIST changes: +IOHEXOL 180 MG/ML 10 ML VIAL. ONE; +MULT-245 PO; +methylPREDNISolone ACETATE 40 MG/ML VIAL. ONE; +methylPREDNISolone ACETATE 80 MG/ML VIAL. ONE
--- NOTE | 2020-08-13 15:02 | PDOC ---
Progress Note - Pain Clinic Date of Service: DOS: DATE: 08/13/20 TIME: 14:59 Diagnosis: Dx: Lumbar radiculopathy with lumbar degenerative disc disease History or Present Illness: HPI: 60-year-old female returns for follow-up status post initial evaluation and preauthorization for lumbar epidural steroid injection. Patient is obtained that now would like to proceed still with a significant pain the low back left lower extremity as was previously left thigh and left lateral thigh anterior thigh medial thigh medial lower leg and across the low back mostly on the left side. Patient reports no new motor or sensory deficits no new bowel or bladder incontinence. Patient rates her pain as a 9 on scale 10 is worse over the past week 8 on average 7 its least is a 7 today patient scribes pain is sharp and stabbing low back and left lower extremity as previously. Patient was taking Medrol dose pack was represcribed reports the first few days was doing much better she also added new medication of Aleve which seems to help decrease the pain by about 25 to 30% as well. Physical Exam: VS: Blood pressure is 122/85 pulse 74 respirations 16 temperature is 98.0 F weight is 148 pounds PE: PHYSICAL EXAMINATION: GENERAL: The patient is awake, alert, oriented, appropriate, very pleasant in demeanor. HEENT: Shows normocephalic, atraumatic. Extraocular movements are intact and symmetrical. Oral cavity: Mucous membranes moist and pink. Dentition is intact. NECK: Shows anterior throat supple without palpable lymphadenopathy noted. CHEST: Shows normal on inspection. Breath sounds are clear bilaterally. HEART: Shows S1, S2 clear. No murmurs auscultated. ABDOMEN: Soft, nontender, nondistended. BACK: Shows spine grossly in the midline. Normal-appearing cervical lordotic curvature. There is slightly increased thoracic kyphosis, some minor flattening of the lumbar lordotic curvature. Lumbar paraspinous muscles show symmetrical on inspection, on palpation shows some moderate tenderness diffusely throughout the upper, middle and lower distribution of the paraspinous muscles, but without specific trigger points, without radiation of pain. The patient has good rotational motion of the lumbar spine, both laterally as well as extension and flexion without significant difficulty. EXTREMITIES: Lower extremities show deep tendon reflexes 2+ in the patellar and tendo calcaneus tendons. Motor exam is 5 on a scale of 5 with right dorsiflexion, extension, quadriceps and hamstring flexion and 4/5 on the left. Peripheral pulses are 1+ posterior tibial. No peripheral edema is noted bilaterally. Lower extremities are warm and dry. SKIN: Shows warm and dry, good turgor. No edema. No sores, rashes or bruising throughout. Procedure: Procedure: Options were discussed with patient. Patient chart reviews her current medication regimen updated current review of systems updated. We will proceed with a lumbar epidural steroid injection stable fluoroscopic guidance. Risks were discussed including but not limited to: Bleeding, infection, possibility of epidural hematoma and subsequent neurological compromise, dural puncture, headaches, spinal cord and/or nerve damage, side effects of steroid medication, and poor results regarding pain control. Patient understands and wished to proceed. She will return to clinic in approximate 2 weeks for follow-up, was c ounseled as return appointment activity level and side effects to be aware of. Medication Injected: Med Injected: Procedure is lumbar epidural steroid injection under local anesthetic using sterile prep and drape at the L3-4 level using C-arm fluoroscopic guidance in both AP and lateral views medications injected is 120 mg Depo-Medrol +10mL preservative-free normal saline and 2 mL contrast- condition at discharge is stable patient tolerated procedure well had no complications. Condition at Discharge: Condition at Discharge: Condition at discharge stable, patient alert the procedure well and had no complications. LNYN HAMPTON MD Aug 13, 2020 15:02
--- NOTE | 2020-08-13 15:03 | PDOC4 ---
Procedure Note: Procedure Note: Patient was consented for lumbar epidural steroid injection. Risks were discussed including but not limited to: Bleeding, infection, possibility of epidural hematoma and subsequent neurological compromise, dural puncture, headaches, spinal cord and/or nerve damage, side effects of steroid medication, and poor results regarding pain control. Patient understands and wished to proceed. Procedure is lumbar epidural steroid injection under local anesthetic using sterile prep and drape at the L3-4 level using C-arm fluoroscopic guidance in both AP and lateral views medications injected is 120 mg Depo-Medrol +10mL preservative-free normal saline and 2 mL contrast- condition at discharge is stable patient tolerated procedure well had no complications. LYNN HAMPTON MD Aug 13, 2020 15:03
== END | disposition home or self-care (01) ==
LOC: PNCL 14:18
PROVIDERS: ATTEND Anesthesiology
DX: M51.16 Intervertebral disc disorders with radiculopathy, lumbar region (principal); I10 Essential (primary) hypertension; E78.00 Pure hypercholesterolemia, unspecified; K21.9 Gastro-esophageal reflux disease without esophagitis; M19.90 Unspecified osteoarthritis, unspecified site; F17.210 Nicotine dependence, cigarettes, uncomplicated; Z87.440 Personal history of urinary (tract) infections; Z90.49 Acquired absence of other specified parts of digestive tract; Z98.890 Other specified postprocedural states; Z79.899 Other long term (current) drug therapy; Z88.1 Allergy status to other antibiotic agents; Z88.8 Allergy status to other drugs, medicaments and biological substances; Z72.89 Other problems related to lifestyle
CPT/HCPCS: 62323; J1030; J1040; Q9965